=== PATIENT | male | born 1995 | race African-American/Black ===

== ENCOUNTER 2019-02-26 10:41 | Outpatient (CLI) | payer OTHER ==
--- NOTE | 2019-02-26 12:59 | RAD ---
LUMBAR SPINE 3 VIEWS: Date: 02/26/19 HISTORY: Low back pain. FINDINGS: Lumbar vertebra maintain normal height and alignment. S1 is transitional. Disc spaces are preserved. No spondylolisthesis or spondylolysis. IMPRESSION: Unremarkable lumbar spine. POS: OFF
== END 2019-02-26 10:42 | disposition home or self-care (01) ==
LOC: RAD-FRANK 10:41
PROVIDERS: ATTEND Nurse Practitioner Family
DX: M54.41 Lumbago with sciatica, right side (principal)
CPT/HCPCS: 72100

== ENCOUNTER 2019-06-03 14:33 | Emergency (ER) | payer OTHER ==
[2019-06-03 15:14] LABS: Bilirubin Negative (Negative); Blood, Urine Negative (Negative); Clarity Clear (Clear); Glucose, Urine (Dipstick) Normal (Negative); Leukocyte Negative Leu/uL (Negative); Nitrite Negative (Negative); Protein, Urine (Dipstick) Negative (Neg-Trace); Urobilinogen Normal mg/dL (Less than 2)
[2019-06-03] MEDS ORDERED: Ondansetron ODT 4 MG TAB ONE (16:23)
[2019-06-03 16:54] LABS: #Eosinphils 0.4 thou/uL (0.0-0.7); #Lymphocytes 1.9 thou/uL (1.20-3.40); #Monocytes 0.5 thou/uL (0.11-0.59); #Neutrophils 3.7 thou/uL (1.40-6.50); %Basophils 0.1 % (0.0-1.0); %Eosinophils 5.7 % (0.0-10.0); %Lymphocytes 29.3 % (21.0-51.0); %Monocytes 8.3 % (0.0-10.0); %Neutrophils 56.6 % (42.0-75.0); Hemoglobin 15.2 g/dL (14.0-18.0); Mean Corpuscular HGB CONC 33.6 g/dL (32.0-36.0); Mean Corpuscular Hemoglobin 29.9 pg (27.0-31.0); Mean Corpuscular Volume 89.1 fL (78.0-98.0); Mean Platelet Volume 8.5 fL (7.4-10.4); Platelet Count 176 thou/uL (130-400); RBC Distribution Width 12.4 % (11.5-14.5); Red Blood Cell (RBC) Count 5.06 mill/uL (4.70-6.10); White Blood Cell (WBC) Count 6.5 thou/uL (4.8-10.8)
[2019-06-03 17:15] LABS: ALT (SGPT) 14 U/L (8-55); AST (SGOT) 16 U/L (5-34); Albumin 4.6 g/dL (3.5-5.0); Alkaline Phosphatase 78 U/L (40-110); Anion Gap 10 mmol/L (10-20); BUN (Urea Nitrogen) 13 mg/dL (8.9-20.6); Bilirubin, Total 0.4 mg/dL (0.2-1.2); Calc. Creatinine Clearance 0 mL/min (70-130); Calcium 9.6 mg/dL (7.8-10.44); Carbon Dioxide 31 mmol/L (22-29); Chloride 101 mmol/L (98-107); Estimated GFR-MDRD Greater than 90; Globulin 2.7 g/dL (2.4-3.5); Glucose 138 mg/dL (70-105); Lipase 110 U/L (8-78); Potassium 3.7 mmol/L (3.5-5.1); Protein, Total 7.3 g/dL (6.0-8.3); Sodium 138 mmol/L (136-145)
--- NOTE | 2019-06-03 17:15 | RAD ---
Exam: Chest 2 views HISTORY:Emergency exam FINDINGS: Lungs: No masses or consolidation. Cardiac silhouette: Normal size Pulmonary vessels: Normal Pleural Spaces: Clear Pneumothorax: None Osseous abnormalities: None of acuity. IMPRESSION: No focal consolidation.
[2019-06-03] MEDS ORDERED: Lidocaine Viscous Sol 2% 15 ml UD Cup ONE (17:34)
[2019-06-03] MEDS ORDERED: Mag-Al 1200 mg/1200 mg/30 ML UDCUP ONE (17:34)
--- NOTE | 2019-06-04 14:27 | EKG ---
Test Reason : Blood Pressure : / mmHG Vent. Rate : 064 BPM Atrial Rate : 064 BPM P-R Int : 148 ms QRS Dur : 088 ms QT Int : 354 ms P-R-T Axes : 062 072 019 degrees QTc Int : 365 ms Normal sinus rhythm Nonspecific ST and T wave abnormality Abnormal ECG Confirmed by KATARINA PURVIS ([id number]), book or script editor CLARA ANDERSON ([id number]) on 06/04/2019 2:26:35 PM Referred By: Confirmed By:KATARINA PURVIS
== END 2019-06-03 18:40 | disposition home or self-care (01) ==
LOC: ERS 14:33
DX: E86.0 Dehydration (principal); M54.5 Low back pain; F17.210 Nicotine dependence, cigarettes, uncomplicated
CPT/HCPCS: 36415; 71046; 80053; 81003; 83605; 83690; 84484; 85025; 87804; 93005; Q0162